=== PATIENT | female | born 1965 | race Hispanic/Latino ===

== ENCOUNTER 2019-09-15 08:58 | Emergency (ER) | payer BC ==
--- OUTSIDE RECORDS SUMMARY | 2019-09-15 09:00 | XMS REPORT ---
:1965 [facility] Address [address] [place] [address] Dr. Landis [address] [place] [id number] Care Team Providers Name Role Phone Unavailable Unavailable Unavailable Problems This patient has no known problems. Allergies, Adverse Reactions, Alerts This patient has no known allergies or adverse reactions. Medications This patient has no known medications.
[2019-09-15] MEDS ORDERED: dexAMETHasone 10 MG/ML VIAL ONE (09:24)
[2019-09-15] MEDS ORDERED: HYDROCODONE/CHLORPHEN 5 ML/OSYR ONE (09:24)
--- NOTE | 2019-09-15 09:41 | ER ---
Nurse's Notes [facility] Name: Sneha Dong Age: 54 yrs Sex: Female : 1965 Arrival Date: 09/15/2019 Time: 09:01 Bed 13 Private MD: Diagnosis: Acute bronchitis Presentation: 09/15 09:10 Presenting complaint: Patient states: Cough x 2 days with intermittent fever. Pt ss reports she was diagnosed with bronchitis at urgent care, given albuterol inh, Zithromax and Tessalon Perles, but reports her symptoms have not improved. Transition of care: patient was not received from another setting of care. Onset of symptoms was September 12, 2019. Risk Assessment: Do you want to hurt yourself or someone else? Patient reports no desire to harm self or others. Initial Sepsis Screen: Does the patient meet any 2 criteria? HR > 90 bpm. Does the patient have a suspected source of infection? Yes: Productive cough/pneumonia. Care prior to arrival: None. 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 - Social history:: Smoking status: Patient/guardian denies using tobacco. - Ebola Screening: : Patient denies exposure to infectious person Patient denies travel to an Ebola-affected area in the 21 days before illness onset. Screenin:34 Abuse screen: Denies threats or abuse. Denies injuries from another. Nutritional jl7 screening: No deficits noted. Tuberculosis screening: No symptoms or risk factors identified. Fall Risk None identified. Assessment: 09:34 General: Appears in no apparent distress. uncomfortable, Behavior is calm, cooperative, jl7 appropriate for age. Pain: Complains of pain in diaphragm Pain does not radiate. Pain currently is 8 out of 10 on a pain scale. Quality of pain is described as aching, Pain began 2-3 days ago. Is continuous. Neuro: Level of Consciousness is awake, alert, obeys commands, Oriented to person, place, time, situation. Cardiovascular: Heart tones present Rhythm is regular. Respiratory: Airway is patent Respiratory effort is even, unlabored, Respiratory pattern is regular, symmetrical, Breath sounds are coarse bilaterally. Derm: Skin is pink, warm \T\ dry. Vital Signs: 09:12 BP 141 / 83; Pulse 102; Resp 17; Temp 98.8(O); Pulse Ox 100% on R/A; Weight 58.97 kg; ss Height 4 ft. 11 in. (149.86 cm); Pain 8/10; 09:12 Body Mass Index 26.26 (58.97 kg, 149.86 cm) ED Course: 09:01 Patient arrived in ED. rg4 09:05 Andrei Duran PA is PHCP. jr8 09:06 Nathan Gibson MD is Attending Physician. jr8 09:12 Triage completed. ss 09:12 Arm band placed on right wrist. ss 09:13 Max Chinchilla, RN is Primary Nurse. bp 09:21 XRAY Chest Pa And Lat (2 Views) In Process Unspecified. EDMS 09:23 Primary Nurse role handed off by Max Chinchilla, RN bp 09:23 Alyssa Garcia, OLIVIER is Primary Nurse. bp 09:34 Patient has correct armband on for positive identification. Bed in low position. Call jl7 light in reach. Side rails up X 1. Pulse ox on. NIBP on. 09:52 No provider procedures requiring assistance completed. Patient did not have IV access jl7 during this emergency room visit. Administered Medications: 09:35 Drug: Decadron 10 mg Route: IM; Site: left deltoid; jl7 09:52 Follow up: Response: No adverse reaction jl7 09:36 Drug: Tussionex Pennkinetic ER 5 ml Route: PO; jl7 09:52 Follow up: Response: No adverse reaction; Pain is decreased jl7 Outcome: 09:39 Discharge ordered by . jr8 09:52 Discharged to home ambulatory, with family. jl7 09:52 Condition: stable 09:52 Discharge instructions given to patient, family, Instructed on discharge instructions, follow up and referral plans. medication usage, Demonstrated understanding of instructions, follow-up care, medications, Prescriptions given X 1. 09:53 Patient left the ED. jl7 Signatures: Dispatcher [employer] EDMS Keane Mame, RN RN ss Andrei Duran PA PA jr8 Kendal Amador4 Alyssa Garcia, RN RN jl7 Max Chinchilla RN RN bp
--- NOTE | 2019-09-15 09:41 | EDPHYS ---
Physician Documentation [facility] Name: Sneha Dong Age: 54 yrs Sex: Female : 1965 Arrival Date: 09/15/2019 Time: 09:01 Bed 13 Private MD: ED Physician Nathan Gibson HPI: 09/15 09:36 This 54 yrs old Female presents to ER via Ambulatory with complaints of jr8 Breathing Difficulty, Congestion. 09:36 The patient has shortness of breath at rest. Onset: The symptoms/episode began/occurred jr8 gradually, 2 day(s) ago. Duration: The symptoms are continuous. The patient's shortness of breath is aggravated by coughing. Associated signs and symptoms: Pertinent positives: productive cough. Severity of symptoms: At their worst the symptoms were moderate in the emergency department the symptoms are unchanged. The patient has not experienced similar symptoms in the past. The patient has been recently seen by a physician:. Patient stated that symptoms started a couple of days ago. Went to urgent care and was given zithromax, tessalon pearls, and albuterol. Stated that she continues to have symptoms and cough is getting worse . 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 - Social history:: Smoking status: Patient/guardian denies using tobacco. - Ebola Screening: : Patient denies exposure to infectious person Patient denies travel to an Ebola-affected area in the 21 days before illness onset. ROS: 09:36 Eyes: Negative for injury, pain, redness, and discharge, ENT: Negative for injury, jr8 pain, and discharge, Neck: Negative for injury, pain, and swelling, Cardiovascular: Negative for chest pain, palpitations, and edema, Abdomen/GI: Negative for abdominal pain, nausea, vomiting, diarrhea, and constipation, Back: Negative for injury and pain, MS/Extremity: Negative for injury and deformity, Skin: Negative for injury, rash, and discoloration, Neuro: Negative for headache, weakness, numbness, tingling, and seizure. 09:36 Respiratory: Positive for cough, shortness of breath. Exam: 09:36 Eyes: Pupils equal round and reactive to light, extra-ocular motions intact. Lids and jr8 lashes normal. Conjunctiva and sclera are non-icteric and not injected. Cornea within normal limits. Periorbital areas with no swelling, redness, or edema. ENT: Nares patent. No nasal discharge, no septal abnormalities noted. Tympanic membranes are normal and external auditory canals are clear. Oropharynx with no redness, swelling, or masses, exudates, or evidence of obstruction, uvula midline. Mucous membranes moist. Neck: Trachea midline, no thyromegaly or masses palpated, and no cervical lymphadenopathy. Supple, full range of motion without nuchal rigidity, or vertebral point tenderness. No Meningismus. Cardiovascular: Regular rate and rhythm with a normal S1 and S2. No gallops, murmurs, or rubs. Normal PMI, no JVD. No pulse deficits. Respiratory: Lungs have equal breath sounds bilaterally, clear to auscultation and percussion. No rales, rhonchi or wheezes noted. No increased work of breathing, no retractions or nasal flaring. Abdomen/GI: Soft, non-tender, with normal bowel sounds. No distension or tympany. No guarding or rebound. No evidence of tenderness throughout. Back: No spinal tenderness. No costovertebral tenderness. Full range of motion. Skin: Warm, dry with normal turgor. Normal color with no rashes, no lesions, and no evidence of cellulitis. MS/ Extremity: Pulses equal, no cyanosis. Neurovascular intact. Full, normal range of motion. Neuro: Awake and alert, GCS 15, oriented to person, place, time, and situation. Cranial nerves II-XII grossly intact. Motor strength 5/5 in all extremities. Sensory grossly intact. Cerebellar exam normal. Normal gait. Vital Signs: 09:12 BP 141 / 83; Pulse 102; Resp 17; Temp 98.8(O); Pulse Ox 100% on R/A; Weight 58.97 kg; ss Height 4 ft. 11 in. (149.86 cm); Pain 8/10; 09:12 Body Mass Index 26.26 (58.97 kg, 149.86 cm) MDM: 09:06 Patient medically screened. jr8 09:37 Data reviewed: vital signs, nurses notes, radiologic studies, plain films. Data jr8 interpreted: Pulse oximetry: on room air is 100 %. Interpretation: normal. Counseling: I had a detailed discussion with the patient and/or guardian regarding: the historical points, exam findings, and any diagnostic results supporting the discharge/admit diagnosis, radiology results, the need for outpatient follow up, a family practitioner, to return to the emergency department if symptoms worsen or persist or if there are any questions or concerns that arise at home. 09:40 ED course: Prescription given for promethazine/dextromethorphan given to patient for jr8 cough. Doing better. No acute consolidation on CXR noted at this time. Will d/c home to continue her medicine already given. To f/u with PCP in a few days. To come back if worse . 09/15 09:10 Order name: XRAY Chest Pa And Lat (2 Views) jr8 Administered Medications: 09:35 Drug: Decadron 10 mg Route: IM; Site: left deltoid; jl7 09:52 Follow up: Response: No adverse reaction jl7 09:36 Drug: Tussionex Pennkinetic ER 5 ml Route: PO; jl7 09:52 Follow up: Response: No adverse reaction; Pain is decreased jl7 Disposition: 09/16 09:51 Co-signature as Attending Physician, Nathan Gibson MD I agree with the assessment and keya plan of care. Disposition: 09/15/19 09:39 Discharged to Home. Impression: Acute bronchitis. - Condition is Stable. - Discharge Instructions: Acute Bronchitis, Adult. - Medication Reconciliation Form, Thank You Letter, Antibiotic Education, Prescription Opioid Use form. - Follow up: Private Physician; When: 2 - 3 days; Reason: Recheck today's complaints, Continuance of care, Re-evaluation by your physician. - Problem is new. - Symptoms have improved. Signatures: Dispatcher [employer] Nathan Torres MD MD cha Smirch, Shelby, RN RN ss Roszak, Josh, PA PA jr8 Alyssa Garcia RN RN jl7 Corrections: (The following items were deleted from the chart) 09/15 09:53 09:39 09/15/2019 09:39 Discharged to Home. Impression: Acute bronchitis. Condition is jl7 Stable. Forms are Medication Reconciliation Form, Thank You Letter, Antibiotic Education, Prescription Opioid Use. Follow up: Private Physician; When: 2 - 3 days; Reason: Recheck today's complaints, Continuance of care, Re-evaluation by your physician. Problem is new. Symptoms have improved. jr8
[2019-09-15 10:07] VITALS: TEMP 98.8
[2019-09-15 10:08] VITALS: BP 141/83; O2SAT 100
--- NOTE | 2019-09-15 12:12 | RAD REPORT ---
EXAM DESCRIPTION: RAD - Chest Pa And Lat (2 Views) - 09/15/2019 9:24 am CLINICAL HISTORY: COUGH Chest pain. COMPARISON: Chest Pa And Lat (2 Views) dated 01/28/2018 FINDINGS: The lungs are clear. The heart is normal in size. No displaced fractures. Cervical hardwar e plate is present. IMPRESSION: No acute or concerning finding suspected.
== END 2019-09-15 09:53 | disposition home or self-care (01) ==
LOC: ER 08:58
DX: J20.9 Acute bronchitis, unspecified (principal); I10 Essential (primary) hypertension; Z88.0 Allergy status to penicillin; Z88.2 Allergy status to sulfonamides; Z91.048 Other nonmedicinal substance allergy status
CPT/HCPCS: 71046; 96372; 99284; J1100

== ENCOUNTER 2024-08-08 06:08 | Emergency (ER) | payer BC ==
[2024-08-08 06:43] LABS: Absolute Eosinophils 0.1 K/uL (0-0.5); Absolute Lymphocytes (CBC) 3.5 K/uL (0.7-4.9); Absolute Monocytes 1.1 K/uL (0.1-1.3); Absolute Neutrophil 5.9 K/uL (1.8-8.0); Basophils % 0.3 % (0-1.3); Eosinophils % 0.9 % (0-4.4); Hematocrit 40.3 % (36.0-45.0); Hemoglobin 13.9 g/dL (12.0-15.0); Lymphocytes % 33.4 % (15.3-44.8); MCHC 34.5 g/dL (32.0-36.0); MCV 87.1 fL (80-100); MPV 7.4 fL (7.6-11.3); Neutrophils % 55.4 % (41.7-73.7); Platelets 316 thou/uL (152-406); RBC Red Blood Cell Count 4.62 M/uL (3.86-4.86); Red Cell Distribution Width 12.3 % (12.1-15.2)
--- NOTE | 2024-08-08 07:05 | RAD REPORT ---
EXAM: Chest Single View HISTORY: CHEST PAIN COMPARISON: 09/15/2019 FINDINGS: LUNGS/PLEURA: The lungs are clear. No pleural effusions or pneumothorax. No pulmonary edema. MEDIASTINUM: The mediastinal silhouette is within normal limits. CARDIAC: The cardiac silhouette is within normal limits. UPPER ABDOMEN: No significant abnormality. BONES: No acute fracture. ACDF in the cervical spine. LINES/TUBES/OTHER: N/A IMPRESSION: No evidence of acute cardiopulmonary disease.
[2024-08-08 07:19] LABS: ALT/SGPT 43 U/L (13-56); AST/SGOT 33 U/L (15-37); Albumin 3.7 g/dL (3.4-5.0); Albumin/Globulin Ratio 1.1 (1.1-1.8); Alkaline Phosphatase 91 U/L (45-117); Anion Gap 11.7 mEq/L (5.0-15.0); BUN Blood Urea Nitrogen 17 mg/dL (7-18); Bicarbonate 23 mEq/L (21-32); Bilirubin Total 0.3 mg/dL (0.2-1.0); Globulin 3.3 g/dL (2.3-3.5); Glomerular Filtration Rate 101 ml/min (=/>90); Glucose Level 91 mg/dL (74-106); Potassium 3.7 mEq/L (3.5-5.1); Sodium Level 132 mEq/L (136-145)
[2024-08-08 07:22] LABS: Bilirubin Direct < 0.2 mg/dL (0-0.2); Bilirubin Indirect, Calculated 0.1 mg/dL (0.2-0.8)
[2024-08-08 07:24] LABS: SARS-CoV-2 Antigen CONTROL BLUE LINE VIS/BG OK; SARS-CoV-2 Antigen Rapid Res Negative (Negative)
--- NOTE | 2024-08-08 07:44 | EDPHYS ---
Physician Documentation [facility] Name: Sneha Dong Age: 59 yrs Sex: Female : 1965 Arrival Date: 08/08/2024 Time: 06:08 Bed 15 Private MD: ED Physician Darien Berry HPI: 08/08 06:14 This 59 yrs old Female presents to ER via Unassigned with complaints of Cough, sp4 Chest Tightness, Chest Congestion, Sore Throat. 07:34 The patient or guardian reports cough, flu symptoms. rn 07:34 Onset: The symptoms/episode began/occurred 1 week(s) ago. Severity of symptoms: At rn their worst the symptoms were mild, in the emergency department the symptoms are unchanged. The patient has not experienced similar symptoms in the past. Patient reports productive cough with brown sputum for 1 week, associated with chills and malaise. Unknown sick contacts. No chronic lung problems. Non-smoker. No hemoptysis.. Historical: - Allergies: 06:41 Iodine; ha1 06:41 PENICILLINS; ha1 06:41 Sulfa (Sulfonamide Antibiotics); ha1 - PMHx: 06:41 Diabetes - NIDDM; Hyperlipidemia; Hypertension; ha1 - Immunization history:: Adult Immunizations up to date. - Infectious Disease History:: Denies. - Social history:: Smoking status: Patient denies any tobacco usage or history of. - Family history:: not pertinent. - Hospitalizations: : No recent hospitalization is reported. ROS: 07:34 Constitutional: Negative for fever, chills, and weight loss, Cardiovascular: Negative rn for chest pain, palpitations, and edema, Respiratory: Positive for cough, negative for shortness of breath Abdomen/GI: Negative for abdominal pain, nausea, vomiting, diarrhea, and constipation, Back: Negative for injury and pain, MS/Extremity: Negative for injury and deformity, Skin: Negative for injury, rash, and discoloration, Neuro: Positive for generalized weakness and malaise Exam: 07:34 Constitutional: This is a well developed, well nourished patient who is awake, alert, rn and in no acute distress. ENT: Dry mucous membranes, no stridor Cardiovascular: Regular rate and rhythm. No pulse deficits. Respiratory: No increased work of breathing, no retractions or nasal flaring. Neuro: Awake and alert, GCS 15 07:45 ECG was reviewed by the Attending Physician. rn Vital Signs: 06:12 BP 144 / 81; Pulse 73; Resp 18 S; Temp 97.9; Pulse Ox 100% on R/A; Weight 56.7 kg; ha1 06:46 BP 133 / 76; Pulse 67; Resp 18; Temp 97.9; Pulse Ox 99% on R/A; Pain 5/10; bm8 08:24 BP 121 / 68; Pulse 63; Resp 17; Pulse Ox 98% on R/A; ll1 06:46 Pain Scale: Adult bm8 Reading Coma Score: 06:46 Eye Response: spontaneous(4). Motor Response: obeys commands(6). Verbal Response: bm8 oriented(5). Total: 15. MDM: 06:15 Medical Screening Exam initiated sp4 07:39 Differential Diagnosis: Bronchitis Influenza Upper Respiratory Infection Viral Syndrome rn Pneumonia. Data reviewed: vital signs, nurses notes. 07:43 Counseling: I had a detailed discussion with the patient and/or guardian regarding the rn historical points, exam findings, and any diagnostic results supporting the discharge/admit diagnosis, lab results, radiology results, the need for outpatient follow up, to return to the emergency department if symptoms worsen or persist or if there are any questions or concerns that arise at home. Response to treatment: the patient's symptoms have mildly improved after treatment, and as a result, I will discharge patient. 08/08 06:14 Order name: SARS RAPID; Complete Time: 07: [facility] 08/08 06:14 Order name: Influenza Screen (a \T\ B); Complete Time: 07: [facility] 08/08 06:16 Order name: Basic Metabolic Panel; Complete Time: 07: [facility] 08/08 06:16 Order name: CBC with Diff; Complete Time: 07:05 [facility] 08/08 06:16 Order name: LFT's; Complete Time: 07: [facility] 08/08 06:16 Order name: Troponin HS; Complete Time: 07: [facility] 08/08 06:16 Order name: XRAY Chest (1 view); Complete Time: 07:05 [facility] 08/08 06:16 Order name: Cardiac monitoring; Complete Time: 06:49 [facility] 08/08 06:16 Order name: EKG - Nurse/Tech; Complete Time: 07:02 sp4 08/08 06:16 Order name: IV Saline Lock; Complete Time: 06:49 sp4 08/08 06:16 Order name: Labs collected and sent; Complete Time: 06:49 sp4 08/08 06:16 Order name: O2 Per Protocol; Complete Time: 06:49 sp4 08/08 06:16 Order name: O2 Sat Monitoring; Complete Time: 06:49 sp4 EC:45 Rate is 68 beats/min. Rhythm is regular. QRS [place] is Normal. NV interval is normal. QRS rn interval is normal. QT interval is normal. No Q waves. T waves are Normal. No ST changes noted. Clinical impression: Normal ECG. Interpreted by me. Reviewed by me. Administered Medications: 07:50 Drug: AZITHromycin PO 500 mg PO once Route: PO; rs5 08:26 Follow up: Response: No adverse reaction ll1 Disposition Summary: 08/08/24 07:44 Discharge Ordered Notes: Location: Home rn Problem: new rn Symptoms: have improved rn Condition: Stable rn Diagnosis - Acute upper respiratory infection, unspecified rn Followup: rn - With: Private Physician - When: As needed - Reason: Recheck today's complaints, Re-evaluation by your physician Discharge Instructions: - Discharge Summary Sheet rn - Upper Respiratory Infection, Adult rn - Cough, Adult, [id number] rn Forms: - Medication Reconciliation Form rn - Antibiotic rn plastic surgery - Prescription Opioid Use rn - Patient Portal Instructions rn - Leadership Thank You Letter rn Prescriptions: - Zithromax Z-Jurgen 250 mg Oral Tablet - take 1 tablet ORAL route as directed for 5 days Day 1 - take two (2) tablets rn one time. Day 2, 3, 4 , 5 take one (1) tablet once daily.; 6 tablet; Refills: 0, Product Selection Permitted Signatures: Dispatcher [employer] EDMS Darien Berry MD MD rn Ayala, Heidy RN RN ha1 Carlos Enrique Villatoro RN RN rs5 Robin Newby MD MD sp4 Poncho Silverio RN ll1 Corrections: (The following items were deleted from the chart) 06:16 06:16 BASIC METABOLIC PANEL+C.LAB.BRZ ordered. EDMS EDMS 06:16 06:16 CBC+H.LAB.BRZ ordered. EDMS EDMS 06:16 06:16 HEPATIC FUNCTION+C.LAB.BRZ ordered. EDMS EDMS 16 06:16 Troponin High Sensitivity+C.LAB.BRZ ordered. EDMS EDMS 06:16 Chest Single View+RAD.RAD.BRZ ordered. EDMS EDMS
--- NOTE | 2024-08-08 07:44 | ER ---
Nurse's Notes [facility] Name: Sneha Dong Age: 59 yrs Sex: Female : 1965 Arrival Date: 08/08/2024 Time: 06:08 Bed 15 Private MD: Diagnosis: Acute upper respiratory infection, unspecified Presentation: 08/08 06:12 Chief complaint: Patient states: SORE THROAT FOR OVER A WEEK, COUGH, NASAL CONGESTION, ha1 CHEST TIGHTNESS. 06:12 Coronavirus screen: Vaccine status: Patient reports receiving the 2nd dose of the covid ha1 vaccine. Ebola Screen: No symptoms or risks identified at this time. Initial Sepsis Screen: Does the patient meet any 2 criteria? No. Patient's initial sepsis screen is negative. Does the patient have a suspected source of infection? No. Patient's initial sepsis screen is negative. Risk Assessment: Do you want to hurt yourself or someone else? Patient reports no desire to harm self or others. Onset of symptoms was August 08, 2024. 06:12 Method Of Arrival: Ambulatory ha1 06:12 Acuity: GAVIN 4 ha1 Historical: - Allergies: 06:41 Iodine; ha1 06:41 PENICILLINS; ha1 06:41 Sulfa (Sulfonamide Antibiotics); ha1 - PMHx: 06:41 Diabetes - NIDDM; Hyperlipidemia; Hypertension; ha1 - Immunization history:: Adult Immunizations up to date. - Infectious Disease History:: Denies. - Social history:: Smoking status: Patient denies any tobacco usage or history of. - Family history:: not pertinent. - Hospitalizations: : No recent hospitalization is reported. Screenin:41 [facility] ED Fall Risk Assessment (Adult) History of falling in the last 3 months, ha1 including since admission No falls in past 3 months (0 pts) Confusion or Disorientation No (0 pts) Intoxicated or Sedated No (0 pts) Impaired Gait No (0 pts) Mobility Assist Device Used No (0 pt) Altered Elimination No (0 pt) Score/Fall Risk Level 0 - 2 = Low Risk Oriented to surroundings, Maintained a safe environment, Educated pt \T\ family on fall prevention, incl call for assistance when getting out of bed, Hourly rounding (assess needs \T\ fall precautionary measures) done. Abuse screen: Denies threats or abuse. Denies injuries from another. Nutritional screening: No deficits noted. Tuberculosis screening: No symptoms or risk factors identified. Assessment: 06:46 General: Appears in no apparent distress. uncomfortable, Behavior is calm, cooperative, bm8 appropriate for age. Pain: Complains of pain in chest and throat Pain does not radiate. Pain currently is 5 out of 10 on a pain scale. Quality of pain is described as tight from coughing Pain began 1 week. Neuro: No deficits noted. Level of Consciousness is awake, alert, obeys commands, Oriented to person, place, time, situation, Appropriate for age. Cardiovascular: Reports chest pain, from continuous cough Heart tones S1 S2 present Capillary refill < 3 seconds in bilateral fingers Patient's skin is warm and dry. Respiratory: Reports cough that is pain with cough Airway is patent Respiratory effort is even, unlabored, Respiratory pattern is regular, symmetrical, Breath sounds are clear bilaterally. GI: No signs and/or symptoms were reported involving the gastrointestinal system. : No signs and/or symptoms were reported regarding the genitourinary system. EENT: Throat is reddened has enlarged tonsils bilaterally with gag reflex present, Reports nasal congestion nasal discharge sore throat. 07:00 Reassessment: report received from night nurse RN. ll1 07:50 Reassessment: No changes from previously documented assessment. Patient and/or family ll1 updated on plan of care and expected duration. Pain level reassessed. 08:25 Reassessment: No changes from previously documented assessment. Patient and/or family ll1 updated on plan of care and expected duration. Pain level reassessed. Patient is alert, oriented x 3, equal unlabored respirations, skin warm/dry/pink. Vital Signs: 06:12 BP 144 / 81; Pulse 73; Resp 18 S; Temp 97.9; Pulse Ox 100% on R/A; Weight 56.7 kg; ha1 06:46 BP 133 / 76; Pulse 67; Resp 18; Temp 97.9; Pulse Ox 99% on R/A; Pain 5/10; bm8 08:24 BP 121 / 68; Pulse 63; Resp 17; Pulse Ox 98% on R/A; ll1 06:46 Pain Scale: Adult bm8 Arnie Coma Score: 06:46 Eye Response: spontaneous(4). Motor Response: obeys commands(6). Verbal Response: bm8 oriented(5). Total: 15. ED Course: 06:11 Patient arrived in ED. gm2 06:14 Robin Newby MD is Attending Physician. sp4 06:41 Triage completed. ha1 06:46 Mick Zabala, RN is Primary Nurse. bm8 06:46 Patient has correct armband on for positive identification. Bed in low position. Call bm8 light in reach. Side rails up X 1. Adult w/ patient. Client placed on continuous cardiac and pulse oximetry monitoring. NIBP monitoring applied. Pulse ox on. NIBP on. Door closed. Noise minimized. Pillow given. Verbal reassurance given. Head of bed elevated. 06:46 No provider procedures requiring assistance completed. Initial lab(s) drawn, by mo, bm8 sent to lab. COVID swab sent to lab. Flu and/or RSV swab sent to lab. Strep swab sent to lab. Inserted saline lock: 20 gauge in right forearm, using aseptic technique. Blood collected. Flushed with 10 mL NS. Patient maintains SpO2 saturation greater than 95% on room air. 06:50 XRAY Chest (1 view) In Process Unspecified. EDMS 06:59 Attending Physician role handed off by Robin Newby MD rn 06:59 Darien Berry MD is Attending Physician. rn 07:02 EKG done, by ED staff, reviewed by Darien Berry MD. bm8 07:08 Report given to OLIVIER Isaac. bm8 08:25 IV discontinued, intact, bleeding controlled, No redness/swelling at site. Pressure ll1 dressing applied. 08:26 Provided Education on: finish all prescribed antibiotics. ll1 08:26 Arm band placed on. ll1 Administered Medications: 07:50 Drug: AZITHromycin PO 500 mg PO once Route: PO; rs5 08:26 Follow up: Response: No adverse reaction ll1 Medication: 06:46 VIS not applicable for this client. bm8 Outcome: 07:44 Discharge ordered by . rn 08:25 Discharged to home ambulatory, ll1 08:25 Condition: stable 08:25 Discharge instructions given to patient, Instructed on discharge instructions, follow up and referral plans. medication usage, Demonstrated understanding of instructions, follow-up care, medications, Prescriptions given X 1, 08:26 Patient left the ED. ll1 Signatures: Dispatcher [employer] EDMS Darien Berry MD MD rn Jean Claude, Poncho, RN RN ll1 Leti Mortensen RN RN ha1 Carlos Enrique Villatoro RN RN rs5 Robin Newby MD MD sp4 Sara Pang 2 Mick Zabala RN RN bm8
[2024-08-08] MEDS ORDERED: AZITHROMYCIN 250 MG TAB ONE (07:56)
[2024-08-08 08:55] VITALS: TEMP 97.9
[2024-08-08 09:02] VITALS: BP 121/68; O2SAT 98
--- NOTE | 2024-08-11 14:17 | EKG ---
Test Date: 2024-08-08 Test Time: 07:02:59 C Application Developer: NGUYỄN MEASUREMENT RESULTS: Intervals: Rate: 68 WV: 166 QRSD: 86 QT: 400 QTc: 425 [place]: P: 55 WV: 166 QRS: 23 T: 48 INTERPRETIVE STATEMENTS: Normal sinus rhythm Normal ECG Compared to ECG 01/24/2006 13:54:07 Left ventricular hypertrophy no longer present Electronically Signed On 08-11-24 14:14:50 CUSTOMER PROGRAM MANAGER by Eddie Whitley
== END 2024-08-08 08:26 | disposition home or self-care (01) ==
LOC: ER 06:08
DX: J06.9 Acute upper respiratory infection, unspecified (principal); R07.89 Other chest pain; E11.9 Type 2 diabetes mellitus without complications; I10 Essential (primary) hypertension; Z11.52 Encounter for screening for COVID-19
CPT/HCPCS: 36415; 71045; 80048; 80076; 84484; 85025; 87804; 87811; 93005; 99284